=== PATIENT | female | born 1965 | race Caucasian/White ===

== ENCOUNTER 2020-06-01 02:55 | Inpatient (IN) | payer BC ==
[~2020-06-01] VITALS: Ht 160 cm; Wt 43.6 kg
[2020-06-01] VITALS (9 sets, daily range): BP systolic 108–132; BP diastolic 62–90
[2020-06-01 03:21] LABS: BASOPHILS # (AUTO) 0.1 X10'3 (0-0.2); EOSINOPHILS # (AUTO) 0.1 X10'3 (0-0.9); HEMOGLOBIN 7.7 g/dl (12.0-16.0); MEAN CORPUSCULAR HEMOGLOBIN 21.7 PG (27.0-31.0); WHITE BLOOD COUNT 6.5 X10'3 (4.5-11.0)
[2020-06-01 03:23] LABS: BASOPHILS % (AUTO) 0.9 % (0-1); EOSINOPHILS % (AUTO) 0.9 % (0-6); HEMATOCRIT 25.4 % (35.0-45.0); LYMPHOCYTES # (AUTO) 2.6 X10'3 (1.1-4.8); LYMPHOCYTES % (AUTO) 39.3 % (21-51); MEAN CORPUSCULAR HGB CONC 30.2 g/dL (33.0-36.5); MEAN CORPUSCULAR VOLUME 71.8 FL (78-98); MEAN PLATELET VOLUME 8.7 FL (7.4-10.4); MONOCYTES # (AUTO) 0.9 X10'3 (0-0.9); MONOCYTES % (AUTO) 13.7 % (2-12); NEUTROPHILS % (AUTO) 45.2 % (42-75); PLATELET COUNT 112 X10'3 (140-440); RED BLOOD COUNT 3.54 X10'6 (4.20-5.60); RED CELL DISTRIBUTION WIDTH 21.7 % (11.5-14.5)
[2020-06-01] MEDS ORDERED: iohexol 350MG/ML 100ml bottle IV ONE (03:35)
[2020-06-01 03:36] LABS: ANISOCYTOSIS 3+; MICROCYTOSIS 1+; PLATELET ESTIMATE DECREASED
[2020-06-01 03:37] LABS: ALANINE AMINOTRANSFERASE 27 U/L (12-78); ALBUMIN 2.5 G/DL (3.4-5.0); ALBUMIN/GLOBULIN RATIO 0.7 (1.1-1.5); ALKALINE PHOSPHATASE 78 IU/L (46-116); ANION GAP 6 (8-16); ASPARTATE AMINO TRANSFERASE 24 U/L (10-37); BILIRUBIN,TOTAL 0.3 MG/DL (0.1-1.0); BLOOD UREA NITROGEN 6 MG/DL (7-18); CALCIUM 8.2 MG/DL (8.5-10.1); CHLORIDE 113 MMOL/L (99-107); CREATININE 0.43 MG/DL (0.40-0.90); GLUCOSE 98 MG/DL (70-104); POTASSIUM 3.7 MMOL/L (3.5-5.1); SODIUM 145 MMOL/L (135-145); TOTAL CARBON DIOXIDE 25.6 MMOL/L (24-32); eGFR > 90 ML/MIN
[2020-06-01 03:40] LABS: HYPOCHROMASIA 2+; POIKILOCYTOSIS 1+
[2020-06-01 03:41] LABS: TEAR DROP CELLS FEW
[2020-06-01 03:45] LABS: MAGNESIUM 1.6 MG/DL (1.5-2.4)
[2020-06-01 03:46] LABS: TROPONIN I 0.81 NG/ML (0.0-0.05)
[2020-06-01] MEDS ORDERED: ondansetron/PF 4mg/2ml inj IV ONE (04:10)
[2020-06-01] MEDS ORDERED: CARI350T PO (04:13)
[2020-06-01] MEDS ORDERED: BUDE10.2 INH (04:13)
[2020-06-01] MEDS ORDERED: PENT100C9 PO (04:13)
[2020-06-01] MEDS ORDERED: TOPI25TA15 PO (04:13)
[2020-06-01] MEDS ORDERED: TAMO20TA4 PO (04:13)
[2020-06-01] MEDS ORDERED: DIAZ10TA4 PO (04:13)
[2020-06-01] MEDS ORDERED: LANS30CA56 PO (04:13)
[2020-06-01] MEDS ORDERED: MOME17SP BOTHNARES (04:13)
[2020-06-01] MEDS ORDERED: VENL75TA4 PO ×2 (04:13)
[2020-06-01] MEDS ORDERED: AZEL30SP3 BOTHNARES (04:13)
[2020-06-01] MEDS ORDERED: ALBU18HF2 INH (04:13)
[2020-06-01] MEDS ORDERED: MULT-1085 PO (04:13)
[2020-06-01] MEDS ORDERED: IMI20NS NS (04:13)
[2020-06-01] MEDS ORDERED: MEMA10TA PO (04:13)
[2020-06-01] MEDS ORDERED: TIOT18CA3 INH (04:13)
[2020-06-01] MEDS ORDERED: EREN70AU SQ (04:13)
[2020-06-01] MEDS ORDERED: RIBO100T3 PO (04:13)
[2020-06-01] MEDS ORDERED: ZOLM5TAB9 (04:14)
[2020-06-01 04:49] LABS: URINE AMPHETAMINE SCREEN NEGATIVE (Neg); URINE BARBITUATE SCREEN NEGATIVE (Neg); URINE BENZODIAZEPINES SCREEN POSITIVE (Neg); URINE CANNABINOID SCREEN NEGATIVE (Neg); URINE COCAINE SCREEN NEGATIVE (Neg); URINE METHADONE SCREEN NEGATIVE (Neg); URINE OPIATE SCREEN NEGATIVE (Neg); URINE PHENCYCLIDINE SCREEN NEGATIVE (Neg)
[2020-06-01] MEDS ORDERED: diltiazem-D5W 125mg/125ml 125 ML IV ONE (05:09)
[2020-06-01] MEDS ORDERED: diltiazem 5mg/ml 5ml inj. IV ONE (05:10)
[2020-06-01] MEDS ORDERED: diltiazem-NS 100mg/100ml 100 ML IV ONE (05:12)
[2020-06-01] MEDS ORDERED: metoprolol tartrate 1mg/ml inj IV ONE (05:25)
[2020-06-01] MEDS: normal saline 1000ml 1,000 ML IV SCH (05:49)
[2020-06-01] MEDS ORDERED: ondansetron/PF 4mg/2ml inj IV PRN (05:50)
[2020-06-01] MEDS ORDERED: mag hydrox/Alum hydrox/simeth 30ml oral suspension PO PRN (05:50)
[2020-06-01] MEDS ORDERED: potassium Cl 20 mEq SR tablet PO PRN (05:50)
[2020-06-01] MEDS ORDERED: morphine 2 MG/ML inj. syringe IV PRN ×2 (05:50)
[2020-06-01] MEDS ORDERED: potassium CL 10mEq/100ml bag 100 ML IV PRN ×2 (05:50)
[2020-06-01] MEDS ORDERED: magnesium hydroxide 30ml (MOM) UD suspension PO PRN (05:50)
[2020-06-01] MEDS ORDERED: SUMATRIPTAN 20 MG NS PRN (05:55)
[2020-06-01] MEDS ORDERED: diazepam 5mg tablet PO PRN (05:55)
[2020-06-01] MEDS ORDERED: albuterol 2.5 MG/3 ML nebule NEB PRN (05:55)
[2020-06-01] MEDS ORDERED: cyclobenzaprine 10mg tablet PO PRN (06:00)
[2020-06-01 06:52] LABS: HEMOGLOBIN A1C 5.6 % (4.5-6.2)
[2020-06-01] MEDS ORDERED: pentosan 100mg capsule PO SCH (07:00)
--- NOTE | 2020-06-01 07:00 | NUR ---
Received report from Stephen LEONG in ED. Had opportunity to ask questions concerning Pt's care. Awaiting Arrival of Pt to room 3019.
--- NOTE | 2020-06-01 07:30 | NUR ---
Pt arrived to room 3019. Pt alert and oriented. Vitals taken: BP 130/76, HR: 115, RR: 18, O2: 95 RA. Will continue to monitor Pt through out shift.
[2020-06-01] MEDS ORDERED: ipratropium 0.5 MG/2.5ML nebule IH SCH (08:00)
[2020-06-01] MEDS ORDERED: multivitamins, therapeutics tablet PO SCH (08:00)
[2020-06-01] MEDS ORDERED: non-formulary drug (Tiotropium Bromide (Spiriva) 1 CAP) INH SCH (08:00)
[2020-06-01] MEDS ORDERED: non-formulary drug (Budesonide/Formoterol Fumarate (Symbicort 160-4.5 Mcg Inhaler) 2 PUFFS INH SCH (08:00)
[2020-06-01] MEDS ORDERED: RIBOFLAVIN PO SCH (08:00)
[2020-06-01] MEDS ORDERED: metoprolol tartrate 50mg tablet PO SCH (08:00)
[2020-06-01] MEDS: K and/or MAG REPLACEMENT MC SCH ×2 (08:00→20:00)
[2020-06-01] MEDS ORDERED: albuterol 2.5 MG/3 ML nebule NEB SCH (09:00)
[2020-06-01] MEDS: pantoprazole 40mg Tablet.DR PO SCH (09:17)
[2020-06-01] MEDS: venlafaxine XR 75mg capsule (Q24H) PO SCH ×2 (09:17→21:18)
[2020-06-01] MEDS: memantine 5mg tablet PO SCH ×2 (09:18→21:17)
[2020-06-01] MEDS: heparin, porcine 5000 units/ml vial SQ SCH ×2 (09:19→21:20)
--- NOTE | 2020-06-01 09:37 | NUR ---
PAGER ID: [phone] MESSAGE: Re: Rashmi Richardson. Room: [facility]. Critical 6hr trop of 1.03. No chest pain. BP: 120/70, HR: 115. -[facility] #[id number] Dr. Reyes paged concerning critical trop.
--- NOTE | 2020-06-01 09:46 | NUR ---
PAGER ID: [phone] MESSAGE: Re: Rashmi Richardson. Room: [facility]. Critical 6hr trop 1.03. No chest pain. BP: 129/70, HR: 115. -[facility] #[id number] Dr. Duarte paged concerning critical 6 hr trop.
[2020-06-01] MEDS: budesonide 0.5mg/2ml UD nebule IH SCH ×2 (10:16→20:28)
[2020-06-01] MEDS: tamoxifen 10mg tablet PO SCH (10:51)
[2020-06-01] MEDS: azelastine Nasal Spray bottle NS SCH (10:52)
[2020-06-01] MEDS: fluticasone nasal spray 16GM bottle NS SCH (10:52)
[2020-06-01] MEDS: pentosan 100mg capsule PO SCH ×2 (12:00→17:00)
--- NOTE | 2020-06-01 15:00 | NUR ---
Patient in room PCU 3019. I have received report from Rashmi Alaniz RN and had the opportunity to ask questions and assume patient care.
[2020-06-01] MEDS: ipratropium/albuterol 3ml nebule NEB SCH ×2 (15:45→20:28)
--- NOTE | 2020-06-01 16:28 | NUR ---
PAGER ID: [phone] MESSAGE: Re: Rashmi Richardson. Room: [facility]. 12hr trop of 0.97. No chest pain. BP: 112/68, HR: 125, sinus tach. Do you want to continue Cardizem drip? -Jatin [facility] #[id number] Dr. Duarte paged concerning Pt's 12 hr trop and cardizem drip.
--- NOTE | 2020-06-01 16:45 | NUR ---
Noted that pt with a low BMI. Pt seen at bedside reports UBW 105-110 lbs. Current scaled weight is 96 lbs (91% reported UBW). Pt endorses a good appetite and states she was eating well [employer] and thought she actually gained weight. Pt on a heart healthy diet documented with 75% PO intake first meal. Pt with no documented decrease in muscle strength or edema. Pt with visible bilat temporal wasting and clavicles are present however pt reports this is normal for her. Pt currently lacks a minimum of two criteria for malnutrition. Pt provided with [employer] coupons with verbal education for ways to gain weight. Pt denies food allergies however reports being lactose intolerant and states she doesn't like cooked vegetables, d/w dietary. Pt denies difficulty chewing or swallowing. Pt reports LBM 9/10 with constipation/diarrhea x 5 years. Pt provided with verbal nutrition therapy education for both. RD contact information provided. Will continue to follow. Addendum: 06/01/20 at [address] Amended: Links added.
--- NOTE | 2020-06-01 17:41 | NUR ---
PAGER ID: [phone] MESSAGE: Re: Rashmi Richardson. Room: 3019. Do you want to continue Cardizem drip? HR 130, sinus tach, BP: 112/66. -Jatin [facility] #[id number] Dr. Duarte paged concerning Pt's cardizem drip.
--- NOTE | 2020-06-01 18:10 | NUR ---
Patient in room PCU 3019. I have received report from DANG JOVEL and had the opportunity to ask questions and assume patient care.
--- NOTE | 2020-06-01 18:18 | NUR ---
Problems reprioritized. Patient report given, questions answered & plan of care reviewed with Smita LEONG.
--- NOTE | 2020-06-01 18:45 | NUR ---
Patient in room PCU 3019. I have received report from DANG Ordoñez and had the opportunity to ask questions and assume patient care.
[2020-06-01 19:00] LABS: % IRON SATURATION 4 % (11-46); IRON 20 UG/DL (49-151); TOTAL IRON BINDING CAPACITY 470 UG/DL (259-388)
[2020-06-01] MEDS: levalbuterol 0.63mg/3ml nebule IH SCH (21:00)
[2020-06-01] MEDS: acetaminophen 325mg tablet PO PRN (21:17)
[2020-06-01] MEDS: metoprolol tartrate 25mg tablet PO SCH (21:18)
[2020-06-01] MEDS ORDERED: metoprolol tartrate 12.5mg (1/2 tablet) PO STA (23:48)
[2020-06-02] VITALS (10 sets, daily range): BP systolic 115–137; BP diastolic 71–83
[2020-06-02] MEDS: levalbuterol 0.63mg/3ml nebule IH SCH ×4 (02:31→20:43)
[2020-06-02] MEDS: ipratropium/albuterol 3ml nebule NEB SCH ×3 (02:32→14:40)
[2020-06-02 05:54] LABS: ALANINE AMINOTRANSFERASE 26 U/L (12-78); ALBUMIN 2.4 G/DL (3.4-5.0); ALBUMIN/GLOBULIN RATIO 0.8 (1.1-1.5); ALKALINE PHOSPHATASE 70 IU/L (46-116); ANION GAP 5 (8-16); ASPARTATE AMINO TRANSFERASE 22 U/L (10-37); BILIRUBIN,TOTAL 0.2 MG/DL (0.1-1.0); BLOOD UREA NITROGEN 7 MG/DL (7-18); BUN/CREATININE RATIO 17.1 (6.6-38.0); CALCIUM 8.5 MG/DL (8.5-10.1); CHLORIDE 113 MMOL/L (99-107); CHOL/HDL RATIO 4.3 (0.00-4.99); CHOLESTEROL 81 MG/DL (0-200); CREATININE 0.41 MG/DL (0.40-0.90); GLUCOSE 98 MG/DL (70-104); HDL CHOLESTEROL 19 MG/DL (35-60); LDL CHOLESTEROL 41 MG/DL (50-100); POTASSIUM 3.6 MMOL/L (3.5-5.1); SODIUM 146 MMOL/L (135-145); TOTAL PROTEIN 5.6 G/DL (6.4-8.2); TRIGLYCERIDES 92 MG/DL (20-135); eGFR > 90 ML/MIN
[2020-06-02 06:02] LABS: WHITE BLOOD COUNT 4.4 X10'3 (4.5-11.0)
--- NOTE | 2020-06-02 06:03 | NUR ---
Problems reprioritized. Patient report given, questions answered & plan of care reviewed with DANG Caraballo.
[2020-06-02 06:04] LABS: HEMATOCRIT 23.1 % (35.0-45.0); MEAN CORPUSCULAR HEMOGLOBIN 21.7 PG (27.0-31.0); MEAN CORPUSCULAR HGB CONC 30.2 g/dL (33.0-36.5); MEAN CORPUSCULAR VOLUME 71.8 FL (78-98); MEAN PLATELET VOLUME 9.5 FL (7.4-10.4); PLATELET COUNT 97 X10'3 (140-440); RED BLOOD COUNT 3.22 X10'6 (4.20-5.60)
--- NOTE | 2020-06-02 06:15 | NUR ---
Patient in room PCU 3019. I have received report from Charo LEONG and had the opportunity to ask questions and assume patient care.
--- NOTE | 2020-06-02 07:13 | NUR ---
Paged Dr. Duarte Re: Rashmi Richardson RM [id number]. PT has critical value H/H- 7.0/23.1. Thank you Rashmi LEONG [id number]
[2020-06-02] MEDS: azelastine Nasal Spray bottle NS SCH (07:33)
[2020-06-02] MEDS: fluticasone nasal spray 16GM bottle NS SCH (07:33)
[2020-06-02] MEDS: venlafaxine XR 75mg capsule (Q24H) PO SCH ×2 (07:34→20:48)
[2020-06-02] MEDS: metoprolol tartrate 25mg tablet PO SCH ×2 (07:34→20:51)
[2020-06-02] MEDS: pantoprazole 40mg Tablet.DR PO SCH (07:34)
[2020-06-02] MEDS: memantine 5mg tablet PO SCH ×2 (07:35→20:48)
[2020-06-02] MEDS: heparin, porcine 5000 units/ml vial SQ SCH ×2 (07:36→20:47)
[2020-06-02] MEDS: tamoxifen 10mg tablet PO SCH (07:36)
[2020-06-02 07:43] LABS: TOTAL CELLS COUNTED 100
[2020-06-02 07:44] LABS: ANISOCYTOSIS 3+; HYPOCHROMASIA 1+; MICROCYTOSIS 1+; PLATELET ESTIMATE DECREASED; TARGET CELLS FEW
[2020-06-02 07:45] LABS: LARGE PLATELETS FEW; POIKILOCYTOSIS FEW; POLYCHROMASIA FEW
[2020-06-02] MEDS ORDERED: ERENUMAB AOOE 70 MG SQ SCH (08:00)
[2020-06-02] MEDS: K and/or MAG REPLACEMENT MC SCH ×2 (08:00→20:00)
[2020-06-02] MEDS ORDERED: [UNRECOGNIZED DRUG - OTHER] SQ SCH (08:00)
[2020-06-02] MEDS: budesonide 0.5mg/2ml UD nebule IH SCH ×2 (08:02→20:43)
--- NOTE | 2020-06-02 09:26 | NUR ---
Patient's Johan was able to bring in home medication today of Pentosan. Medication was given to pharmacy. Patient also stated that her home medication Aimovig 1x monthly was already taken May 22, 2020. I have updated the home med rec and will discuss medication going forward with Dr. Duarte. Will continue to monitor.
--- NOTE | 2020-06-02 11:14 | NUR ---
Dr. Duarte at bedside with patient and Nurse. New order 1 unit of blood. Blood consent signed and in chart. DC Home medication that pt takes once a month. Continue troponin every 6hrs X3. If trops are normal MD would like Stress test done. Will continue to monitor.
--- NOTE | 2020-06-02 11:45 | NUR ---
Patients home medication 1 unit Elmiron has no bar code on package from pharmacy. Manually dispensed.
--- NOTE | 2020-06-02 15:34 | NUR ---
PAGER ID: [phone] MESSAGE: Rashmi díaz [phone]. RE [id number] Pt having a reaction to transfusion, hives itching, needs Benadryl or something/ Thanks! Addendum: 06/02/20 at 1536 by Rashmi Deutsch RN approved a one time dose of Benadryl 25mg IV Now
[2020-06-02] MEDS ORDERED: diphenhydrAMINE 50 mg/ml inj IV ONE (15:40)
--- NOTE | 2020-06-02 16:00 | NUR ---
Patients 1 Unit of LRPC was held due to pt stating itchiness and hives. MD was called and notified with a one time order of Benadryl 25mg now. Pt received via IV now. All blood tubing was taken down immediately and bagged in hazardous waste and brought to Lab and given to blood bank rep Ramírez. A Nurses report of transfusion reaction was filled out and an intervention was added into care of plan for patient as well. Patient VSS 129/86, HR 1520, O2 91%RA, RR18, oral temp 98.9. A urine sample was collected and sent as well to lab and lab draw is here pulling a pink and red tops for blood samples and testing. Patient is being monitored closely. Will continue to monitor.
--- NOTE | 2020-06-02 18:07 | NUR ---
Problems reprioritized. Patient report given, questions answered & plan of care reviewed with Charo LEONG.
--- NOTE | 2020-06-02 18:30 | NUR ---
Patient in room PCU 3019. I have received report from DANG Caraballo and had the opportunity to ask questions and assume patient care.
[2020-06-02] MEDS: acetaminophen 325mg tablet PO PRN (18:44)
--- NOTE | 2020-06-02 21:33 | NUR ---
Sent to [facility] PAGER ID: [phone] MESSAGE: room 3019 Rashmi Mckeon: DX: NSTEMI Pt. has chest pain, ekg changes. Can you look at them? Gave morphine for pain. Thanks, Charo [id number]
[2020-06-03] VITALS (10 sets, daily range): BP systolic 121–147; BP diastolic 81–92
[2020-06-03 01:29] LABS: ALANINE AMINOTRANSFERASE 25 U/L (12-78); ALBUMIN 2.4 G/DL (3.4-5.0); ALBUMIN/GLOBULIN RATIO 0.7 (1.1-1.5); ALKALINE PHOSPHATASE 79 IU/L (46-116); ANION GAP 6 (8-16); ASPARTATE AMINO TRANSFERASE 20 U/L (10-37); BILIRUBIN,TOTAL 0.3 MG/DL (0.1-1.0); BLOOD UREA NITROGEN 7 MG/DL (7-18); BUN/CREATININE RATIO 19.4 (6.6-38.0); CALCIUM 8.2 MG/DL (8.5-10.1); CHLORIDE 112 MMOL/L (99-107); CREATININE 0.36 MG/DL (0.40-0.90); GLUCOSE 95 MG/DL (70-104); POTASSIUM 3.3 MMOL/L (3.5-5.1); SODIUM 145 MMOL/L (135-145); TOTAL CARBON DIOXIDE 27.3 MMOL/L (24-32); TOTAL PROTEIN 5.7 G/DL (6.4-8.2); eGFR > 90 ML/MIN
[2020-06-03 01:32] LABS: TROPONIN I 0.51 NG/ML (0.0-0.05)
[2020-06-03 02:22] LABS: HEMATOCRIT 24.7 % (35.0-45.0); HEMOGLOBIN 7.6 g/dl (12.0-16.0); MEAN CORPUSCULAR HEMOGLOBIN 22.3 PG (27.0-31.0); MEAN CORPUSCULAR HGB CONC 30.8 g/dL (33.0-36.5); MEAN CORPUSCULAR VOLUME 72.5 FL (78-98); MEAN PLATELET VOLUME 9.7 FL (7.4-10.4); PLATELET COUNT 90 X10'3 (140-440); RED BLOOD COUNT 3.41 X10'6 (4.20-5.60); WHITE BLOOD COUNT 4.6 X10'3 (4.5-11.0)
[2020-06-03] MEDS: levalbuterol 0.63mg/3ml nebule IH SCH ×4 (03:14→20:18)
[2020-06-03 05:19] LABS: TOTAL CELLS COUNTED 100
[2020-06-03 05:20] LABS: ANISOCYTOSIS 3+; MICROCYTOSIS 1+; PLATELET ESTIMATE DECREASED
[2020-06-03 05:21] LABS: HYPOCHROMASIA 1+
[2020-06-03] MEDS: normal saline 1000ml 1,000 ML IV SCH (05:49)
--- NOTE | 2020-06-03 06:30 | NUR ---
Patient had a breathing treatment last night around 2100. After breathing treatment patient HR went up from 155 to 130 and she began having pain in her left arm that radiated to her chest located at her sternum. A 12 lead EKG was taken, reviewed by Dr. Caballero and was not noted to have any significant findings. Morphine was given to patient which relieved her chest pain. Patient was chest pain free throughout rest of night.
[2020-06-03] MEDS: budesonide 0.5mg/2ml UD nebule IH SCH ×2 (07:36→20:18)
[2020-06-03] MEDS: fluticasone nasal spray 16GM bottle NS SCH (07:47)
[2020-06-03] MEDS: azelastine Nasal Spray bottle NS SCH (07:47)
[2020-06-03] MEDS: memantine 5mg tablet PO SCH ×2 (07:48→19:59)
[2020-06-03] MEDS: venlafaxine XR 75mg capsule (Q24H) PO SCH ×2 (07:48→20:00)
[2020-06-03] MEDS: pantoprazole 40mg Tablet.DR PO SCH (07:48)
[2020-06-03] MEDS: metoprolol tartrate 25mg tablet PO SCH ×2 (07:49→20:00)
[2020-06-03] MEDS: tamoxifen 10mg tablet PO SCH (07:51)
[2020-06-03] MEDS: heparin, porcine 5000 units/ml vial SQ SCH ×2 (07:53→20:01)
[2020-06-03] MEDS: K and/or MAG REPLACEMENT MC SCH ×2 (08:00→20:00)
[2020-06-03] MEDS: acetaminophen 325mg tablet PO PRN (08:07)
[2020-06-03] MEDS: methylPREDNISolone sod succ 125mg/2ml vial IV SCH ×2 (08:17→20:02)
[2020-06-03 09:05] LABS: % IRON SATURATION 5 % (11-46); IRON 25 UG/DL (49-151); TOTAL IRON BINDING CAPACITY 465 UG/DL (259-388)
[2020-06-03] MEDS ORDERED: diphenhydrAMINE 25mg capsule PO ONE ×2 (11:40→12:10)
[2020-06-03] MEDS ORDERED: diphenhydrAMINE 50 mg/ml inj IV ONE (11:40)
--- NOTE | 2020-06-03 11:43 | NUR ---
ordered 2 units of RPPC. Was made aware of transfusion reaction yesterday. She would also like the patient to be medicated prior to transfusion with 25mg of benadryl and 650mg of Tylenol. 25mg of IV benadryl to be given if reaction occurs.
[2020-06-03] MEDS ORDERED: diphenhydrAMINE 50 mg/ml inj IV PRN (12:10)
--- NOTE | 2020-06-03 14:56 | NUR ---
notified. PAGER ID: [phone] MESSAGE: Re: Rashmi Richardson. 3019. Pt. tolerating blood transfusion. Would you like a 2nd unit after this unit is done? thank you. Gabrielle Johnson [phone].
[2020-06-03 16:31] LABS: HEMATOCRIT 30.7 % (35.0-45.0); HEMOGLOBIN 9.5 g/dl (12.0-16.0); MEAN CORPUSCULAR HEMOGLOBIN 23.7 PG (27.0-31.0); MEAN CORPUSCULAR VOLUME 76.3 FL (78-98); MEAN PLATELET VOLUME 8.9 FL (7.4-10.4); PLATELET COUNT 93 X10'3 (140-440); RED BLOOD COUNT 4.02 X10'6 (4.20-5.60); RED CELL DISTRIBUTION WIDTH 23.3 % (11.5-14.5); WHITE BLOOD COUNT 3.1 X10'3 (4.5-11.0)
--- NOTE | 2020-06-03 16:41 | NUR ---
notified. PAGER ID: [phone] MESSAGE: Re: Dylan Rashmi. 3019. HGB after one unit 9.5. Blood bank recommending not to infuse 2nd Unit. On-call pathologist willing to speak to you if theres issues. Thank you. Gabrielle Wray [phone]
--- NOTE | 2020-06-03 18:15 | NUR ---
Patient in room PCU 3019. I have received report from Gabrielle LEONG and had the opportunity to ask questions and assume patient care.
--- NOTE | 2020-06-03 18:25 | NUR ---
Problems reprioritized. Patient report given, questions answered & plan of care reviewed with DANG Yu.
[2020-06-04] MEDS: acetaminophen 325mg tablet PO PRN ×2 (00:18→16:18)
[2020-06-04] MEDS: potassium Cl 20 mEq SR tablet PO PRN ×2 (00:18→04:51)
[2020-06-04 02:00] VITALS: BP 126/82
[2020-06-04] MEDS: levalbuterol 0.63mg/3ml nebule IH SCH ×4 (03:00→20:12)
[2020-06-04 06:11] LABS: ALANINE AMINOTRANSFERASE 31 U/L (12-78); ALBUMIN 2.6 G/DL (3.4-5.0); ALBUMIN/GLOBULIN RATIO 0.7 (1.1-1.5); ALKALINE PHOSPHATASE 74 IU/L (46-116); ANION GAP 6 (8-16); ASPARTATE AMINO TRANSFERASE 20 U/L (10-37); BILIRUBIN,TOTAL 0.3 MG/DL (0.1-1.0); BLOOD UREA NITROGEN 5 MG/DL (7-18); BUN/CREATININE RATIO 12.8 (6.6-38.0); CALCIUM 8.7 MG/DL (8.5-10.1); CHLORIDE 112 MMOL/L (99-107); CREATININE 0.39 MG/DL (0.40-0.90); GLUCOSE 97 MG/DL (70-104); POTASSIUM 3.6 MMOL/L (3.5-5.1); SODIUM 145 MMOL/L (135-145); TOTAL CARBON DIOXIDE 27.1 MMOL/L (24-32); TOTAL PROTEIN 6.1 G/DL (6.4-8.2); eGFR > 90 ML/MIN
--- NOTE | 2020-06-04 06:22 | NUR ---
Patient in room PCU 3019. I have received report from Aimee LEONG and had the opportunity to ask questions and assume patient care.
--- NOTE | 2020-06-04 06:24 | NUR ---
Problems reprioritized. Patient report given, questions answered & plan of care reviewed with Gabrielle LEONG.
[2020-06-04 06:30] VITALS: BP 154/94
[2020-06-04] MEDS: heparin, porcine 5000 units/ml vial SQ SCH (08:00)
[2020-06-04] MEDS: K and/or MAG REPLACEMENT MC SCH ×2 (08:00→20:00)
[2020-06-04] MEDS: azelastine Nasal Spray bottle NS SCH (08:04)
[2020-06-04] MEDS: pantoprazole 40mg Tablet.DR PO SCH (08:06)
[2020-06-04] MEDS: venlafaxine XR 75mg capsule (Q24H) PO SCH ×2 (08:06→20:19)
[2020-06-04] MEDS: metoprolol tartrate 25mg tablet PO SCH ×2 (08:06→20:19)
[2020-06-04] MEDS: tamoxifen 10mg tablet PO SCH (08:06)
[2020-06-04] MEDS: memantine 5mg tablet PO SCH ×2 (08:06→20:20)
[2020-06-04] MEDS: methylPREDNISolone sod succ 125mg/2ml vial IV SCH ×2 (08:06→20:22)
[2020-06-04] MEDS: fluticasone nasal spray 16GM bottle NS SCH (08:07)
[2020-06-04 08:34] LABS: HEMATOCRIT 29.1 % (35.0-45.0); MEAN CORPUSCULAR HEMOGLOBIN 23.5 PG (27.0-31.0); MEAN CORPUSCULAR HGB CONC 30.9 g/dL (33.0-36.5); MEAN CORPUSCULAR VOLUME 76.2 FL (78-98); MEAN PLATELET VOLUME 9.3 FL (7.4-10.4); PLATELET COUNT 88 X10'3 (140-440); RED BLOOD COUNT 3.82 X10'6 (4.20-5.60); RED CELL DISTRIBUTION WIDTH 23.6 % (11.5-14.5); WHITE BLOOD COUNT 4.9 X10'3 (4.5-11.0)
[2020-06-04] MEDS: budesonide 0.5mg/2ml UD nebule IH SCH ×2 (09:04→20:12)
[2020-06-04 09:58] LABS: TOTAL CELLS COUNTED 100
[2020-06-04 09:59] LABS: ANISOCYTOSIS 3+; HYPOCHROMASIA 1+; MICROCYTOSIS 1+; PLATELET ESTIMATE DECREASED
[2020-06-04 11:00] VITALS: BP 94/76
[2020-06-04 15:00] VITALS: BP 122/79
--- NOTE | 2020-06-04 17:57 | NUR ---
Spoke to Dr Myers and he said to D/C heparin since patient is a "tiny little woman who walks around just fine."
[2020-06-04 18:00] VITALS: BP 130/84
--- NOTE | 2020-06-04 18:18 | NUR ---
Problems reprioritized. Patient report given, questions answered & plan of care reviewed with Aimee LEONG.
--- NOTE | 2020-06-04 18:23 | NUR ---
Patient in room PCU 3019. I have received report from Gabrielle LEONG and had the opportunity to ask questions and assume patient care.
[2020-06-04 22:00] VITALS: BP 137/84
[2020-06-05 02:00] VITALS: BP 130/77
[2020-06-05 02:13] LABS: OCCULT BLOOD STOOL NEGATIVE (Neg)
[2020-06-05] MEDS: levalbuterol 0.63mg/3ml nebule IH SCH ×2 (02:44→09:04)
[2020-06-05] MEDS: normal saline 1000ml 1,000 ML IV SCH (05:49)
[2020-06-05 06:25] LABS: HEMATOCRIT 28.3 % (35.0-45.0); HEMOGLOBIN 8.7 g/dl (12.0-16.0); MEAN CORPUSCULAR HEMOGLOBIN 23.6 PG (27.0-31.0); WHITE BLOOD COUNT 5.3 X10'3 (4.5-11.0)
[2020-06-05 06:26] LABS: MEAN CORPUSCULAR HGB CONC 30.9 g/dL (33.0-36.5); MEAN CORPUSCULAR VOLUME 76.3 FL (78-98); MEAN PLATELET VOLUME 9.7 FL (7.4-10.4); PLATELET COUNT 86 X10'3 (140-440); RED BLOOD COUNT 3.71 X10'6 (4.20-5.60); RED CELL DISTRIBUTION WIDTH 24.1 % (11.5-14.5)
--- NOTE | 2020-06-05 06:26 | NUR ---
Problems reprioritized. Patient report given, questions answered & plan of care reviewed with Gabrielle LEONG.
[2020-06-05 06:30] VITALS: BP 130/81
[2020-06-05 06:46] LABS: ALANINE AMINOTRANSFERASE 30 U/L (12-78); ALBUMIN 2.5 G/DL (3.4-5.0); ALBUMIN/GLOBULIN RATIO 0.7 (1.1-1.5); ALKALINE PHOSPHATASE 68 IU/L (46-116); ANION GAP 5 (8-16); ASPARTATE AMINO TRANSFERASE 16 U/L (10-37); BILIRUBIN,TOTAL 0.3 MG/DL (0.1-1.0); BLOOD UREA NITROGEN 7 MG/DL (7-18); CALCIUM 8.3 MG/DL (8.5-10.1); CHLORIDE 113 MMOL/L (99-107); CREATININE 0.35 MG/DL (0.40-0.90); GLUCOSE 90 MG/DL (70-104); POTASSIUM 3.4 MMOL/L (3.5-5.1); SODIUM 145 MMOL/L (135-145); TOTAL CARBON DIOXIDE 27.1 MMOL/L (24-32); TOTAL PROTEIN 5.9 G/DL (6.4-8.2); eGFR > 90 ML/MIN
[2020-06-05] MEDS ORDERED: potassium CL 10mEq/100ml bag 100 ML IV PRN (07:05)
[2020-06-05] MEDS ORDERED: magnesium 4gm in 100ml NS 100 ML IV PRN (07:05)
[2020-06-05] MEDS ORDERED: magnesium Cl slow-release 64mg tablet PO PRN (07:05)
[2020-06-05] MEDS ORDERED: potassium Cl 20 mEq SR tablet PO PRN ×2 (07:05)
[2020-06-05] MEDS: methylPREDNISolone sod succ 125mg/2ml vial IV SCH (07:28)
[2020-06-05] MEDS: azelastine Nasal Spray bottle NS SCH (07:28)
[2020-06-05] MEDS: fluticasone nasal spray 16GM bottle NS SCH (07:28)
[2020-06-05] MEDS: tamoxifen 10mg tablet PO SCH (07:30)
[2020-06-05] MEDS: pantoprazole 40mg Tablet.DR PO SCH (07:30)
[2020-06-05] MEDS: metoprolol tartrate 25mg tablet PO SCH (07:30)
[2020-06-05] MEDS: memantine 5mg tablet PO SCH (07:30)
[2020-06-05] MEDS: venlafaxine XR 75mg capsule (Q24H) PO SCH (07:30)
[2020-06-05] MEDS ORDERED: K and/or MAG REPLACEMENT MC SCH (08:00)
[2020-06-05] MEDS: budesonide 0.5mg/2ml UD nebule IH SCH (09:04)
[2020-06-05 10:04] LABS: ANISOCYTOSIS 3+; LARGE PLATELETS MODERATE; MICROCYTOSIS 1+; PLATELET ESTIMATE DECREASED; TOTAL CELLS COUNTED 100
[2020-06-05 10:05] LABS: HYPOCHROMASIA 2+
[2020-06-05] MEDS ORDERED: LEVA0.6333 IH (10:53)
[2020-06-05] MEDS ORDERED: METO25TA6 PO (10:54)
[2020-06-05] MEDS: acetaminophen 325mg tablet PO PRN (10:59)
[2020-06-05 11:00] VITALS: BP 141/83
--- NOTE | 2020-06-05 13:40 | NUR ---
Per MD, patient stable for discharge home. Discharge packet completed and given to patient, all questions answered. Home medication returned to patient. New prescriptions faxed. IV removed with catheter intact and tele monitor removed. Patient escorted from hospital via wheelchair, accompanied by myself, community education coordinator, and student nurse. Patient and family live in and family picked up pt in RV.
== END 2020-06-05 13:40 | disposition home or self-care (01) | DRG 281 ==
LOC: ER 02:55 → ED HOLD 05:49 → PCU 3S 07:23
PROVIDERS: ADMIT Internal Medicine; ATTEND Internal Medicine
PROC: B32T1ZZ Computerized Tomography (CT Scan) of Left Pulmonary Artery using Low Osmolar Contrast (ICD-10-PCS; 2020-06-01)
PROC: B3201ZZ Computerized Tomography (CT Scan) of Thoracic Aorta using Low Osmolar Contrast (ICD-10-PCS; 2020-06-01)
PROC: B32S1ZZ Computerized Tomography (CT Scan) of Right Pulmonary Artery using Low Osmolar Contrast (ICD-10-PCS; 2020-06-01)
PROC: 30233N1 Transfusion of Nonautologous Red Blood Cells into Peripheral Vein, Percutaneous Approach (ICD-10-PCS; principal; 2020-06-02)
DX: I21.4 Non-ST elevation (NSTEMI) myocardial infarction (principal); J44.1 Chronic obstructive pulmonary disease with (acute) exacerbation; T80.61XA Other serum reaction due to administration of blood and blood products, initial encounter; F32.9 Major depressive disorder, single episode, unspecified; I10 Essential (primary) hypertension; D50.0 Iron deficiency anemia secondary to blood loss (chronic); I25.118 Atherosclerotic heart disease of native coronary artery with other forms of angina pectoris; M47.9 Spondylosis, unspecified; M79.602 Pain in left arm; G43.909 Migraine, unspecified, not intractable, without status migrainosus; F03.90 Unspecified dementia, unspecified severity, without behavioral disturbance, psychotic disturbance, mood disturbance, and anxiety; M25.512 Pain in left shoulder; R00.0 Tachycardia, unspecified; Z66 Do not resuscitate; Z82.49 Family history of ischemic heart disease and other diseases of the circulatory system; Z85.3 Personal history of malignant neoplasm of breast; Z87.11 Personal history of peptic ulcer disease; Z88.8 Allergy status to other drugs, medicaments and biological substances; Z79.899 Other long term (current) drug therapy; Y92.230 Patient room in hospital as the place of occurrence of the external cause; Y84.8 Other medical procedures as the cause of abnormal reaction of the patient, or of later complication, without mention of misadventure at the time of the procedure
CPT/HCPCS: 36415; 36430; 71275; 80053; 80061; 80305; 82272; 83036; 83540; 83550; 83735; 83880; 84484; 85007; 85008; 85025; 85027; 86078; 86885; 86900; 86901; 86920; 87081; 93005; 93306; 94640; 94760; G0378; J1200; J1644; J2270; J2405; J2930; J3490; J7030; J7614; J7626; P9016; Q0163; Q9967

== ENCOUNTER 2020-06-15 09:08 | Inpatient (IN) | payer BC ==
[~2020-06-15] VITALS: Ht 160 cm; Wt 45.3 kg
[~2020-06-15 09:08] MED LIST: AZEL30SP3 BOTHNARES; BUDE10.2 INH; CARI350T PO; DIAZ10TA4 PO; EREN70AU SQ; IMI20NS NS; LANS30CA56 PO; LEVA0.6333 IH; MEMA10TA PO; METO25TA6 PO; MOME17SP BOTHNARES; MULT-1085 PO; PENT100C9 PO; RIBO100T3 PO; TAMO20TA4 PO; TIOT18CA3 INH; TOPI25TA15 PO; VENL75TA4 PO; ZOLM5TAB9
[2020-06-15] MEDS ORDERED: heparin 10,000 units/1 ML INJ IV ONE ×2 (09:10→09:20)
--- NOTE | 2020-06-15 09:18 | NUR ---
Patient came in with heparin drip,spoke with Dr. Dockery,ordered to use the lowest weight(50kg)per protocol for heparin drip.
[2020-06-15] MEDS: heparin 25,000 UNIT/250ml bag 250 ML IV SCH ×2 (09:25→16:24)
[2020-06-15] MEDS ORDERED: iohexol 350MG/ML 100ml bottle IV ONE (09:31)
[2020-06-15 09:41] LABS: HEMATOCRIT 29.3 % (35.0-45.0); MEAN CORPUSCULAR HEMOGLOBIN 23.2 PG (27.0-31.0); MEAN CORPUSCULAR HGB CONC 30.9 g/dL (33.0-36.5); MEAN CORPUSCULAR VOLUME 75.1 FL (78-98); MEAN PLATELET VOLUME 8.9 FL (7.4-10.4); PLATELET COUNT 94 X10'3 (140-440); RED CELL DISTRIBUTION WIDTH 24.8 % (11.5-14.5); WHITE BLOOD COUNT 4.1 X10'3 (4.5-11.0)
[2020-06-15 09:52] LABS: PARTIAL THROMBOPLASTIN TIME 45 SECONDS (22-32)
[2020-06-15] MEDS ORDERED: morphine 2 MG/ML inj. syringe IV PRN ×2 (11:00)
[2020-06-15] MEDS ORDERED: metoprolol tartrate 1mg/ml inj IV PRN (11:00)
[2020-06-15] MEDS ORDERED: mag hydrox/Alum hydrox/simeth 30ml oral suspension PO PRN (11:00)
[2020-06-15] MEDS ORDERED: acetaminophen 325mg tablet PO PRN ×2 (11:00)
[2020-06-15] MEDS ORDERED: bisacodyl 10mg suppository rectal RC PRN (11:00)
[2020-06-15] MEDS ORDERED: magnesium 2GM in 50ml NS 50 ML IV PRN (11:00)
[2020-06-15] MEDS ORDERED: HYDROcodone/acetaminophen 5mg/325mg tablet PO PRN (11:00)
[2020-06-15] MEDS ORDERED: magnesium Cl slow-release 64mg tablet PO PRN (11:00)
[2020-06-15] MEDS ORDERED: magnesium hydroxide 30ml (MOM) UD suspension PO PRN (11:00)
[2020-06-15] MEDS ORDERED: regadenoson 0.4mg/5ml syringe IV PRN (11:00)
[2020-06-15] MEDS ORDERED: HYDROcodone/acetaminophen 10/325mg tab PO PRN (11:00)
[2020-06-15] MEDS ORDERED: potassium Cl 20 mEq SR tablet PO PRN (11:00)
[2020-06-15] MEDS ORDERED: magnesium 4gm in 100ml NS 100 ML IV PRN (11:00)
[2020-06-15] MEDS ORDERED: nitroGLYCERIN 0.4mg SUBLingual tab SL PRN ×2 (11:00)
[2020-06-15] MEDS ORDERED: potassium CL 10mEq/100ml bag 100 ML IV PRN ×2 (11:00)
[2020-06-15] MEDS ORDERED: aminophylline 250mg/10ml inj. IV PRN (11:00)
[2020-06-15] MEDS ORDERED: ondansetron/PF 4mg/2ml inj IV PRN (11:00)
[2020-06-15] MEDS: normal saline 1000ml 1,000 ML IV SCH ×2 (11:23→23:27)
[2020-06-15 11:38] LABS: ANISOCYTOSIS 3+; MICROCYTOSIS 1+; PLATELET ESTIMATE DECREASED; TOTAL CELLS COUNTED 100
[2020-06-15 11:39] LABS: GIANT PLATELET FEW; HYPOCHROMASIA 3+; LARGE PLATELETS MANY
--- NOTE | 2020-06-15 11:55 | NUR ---
received report from Sonya RN, ED. Had oppurtunity to ask questions concerning Pt care and plan of care. Awaiting Pt arrival to 302.
--- NOTE | 2020-06-15 12:26 | NUR ---
Pt arrived to room 3027B. Pt alert and oriented. Vitals stable. Will continue to monitor Pt.
[2020-06-15 12:45] VITALS: BP 127/86
[2020-06-15] MEDS ORDERED: ALBU8.5H8 INH (12:48)
[2020-06-15] MEDS ORDERED: GABA-530 PO (12:48)
[2020-06-15] MEDS ORDERED: DOXY-1 PO (12:49)
[2020-06-15] MEDS ORDERED: diazepam 5mg tablet PO PRN (13:30)
[2020-06-15] MEDS ORDERED: cyclobenzaprine 10mg tablet PO PRN (13:30)
[2020-06-15] MEDS ORDERED: SUMATRIPTAN 20 MG IH PRN (13:30)
[2020-06-15 13:57] LABS: HEMOGLOBIN A1C 5.4 % (4.5-6.2)
[2020-06-15 14:04] LABS: PHOSPHORUS 4.2 MG/DL (2.3-4.5)
[2020-06-15] MEDS ORDERED: ipratropium 0.5 MG/2.5ML nebule IH PRN (14:05)
[2020-06-15] MEDS ORDERED: albuterol 2.5 MG/3 ML nebule NEB PRN (14:05)
--- NOTE | 2020-06-15 14:18 | NUR ---
PAGER ID: [phone] MESSAGE: Re: Rashmi Richardson. Room: [facility]. Nuc-Med will do stress test in the morning due to Pt's elevated troponins. -Jatin [facility] #[id number] Dr. Kearns paged concerning Nuc-Med stress test
[2020-06-15 15:42] LABS: ALBUMIN 2.6 G/DL (3.4-5.0); ANION GAP 9 (8-16); BLOOD UREA NITROGEN 7 MG/DL (7-18); BUN/CREATININE RATIO 14.6 (6.6-38.0); CALCIUM 8.3 MG/DL (8.5-10.1); CHLORIDE 112 MMOL/L (99-107); CREATININE 0.48 MG/DL (0.40-0.90); GLUCOSE 74 MG/DL (70-104); POTASSIUM 3.2 MMOL/L (3.5-5.1); SODIUM 145 MMOL/L (135-145); TOTAL CARBON DIOXIDE 24.1 MMOL/L (24-32); eGFR > 90 ML/MIN
[2020-06-15] MEDS: pantoprazole 40mg Tablet.DR PO SCH (16:16)
[2020-06-15] MEDS: potassium Cl 20 mEq SR tablet PO PRN ×3 (16:17→23:59)
[2020-06-15] MEDS: heparin 10,000 units/1 ML INJ IV PRN ×2 (16:23→22:51)
[2020-06-15] MEDS ORDERED: pentosan 100mg capsule PO SCH (17:00)
[2020-06-15 18:00] VITALS: BP 136/87
--- NOTE | 2020-06-15 18:40 | NUR ---
Problems reprioritized. Patient report given, questions answered & plan of care reviewed with Citlali LEONG.
--- NOTE | 2020-06-15 18:44 | NUR ---
Patient in room PCU 3027. I have received report from DANG Steiner and had the opportunity to ask questions and assume patient care.
[2020-06-15] MEDS: K and/or MAG REPLACEMENT MC SCH (19:11)
[2020-06-15] MEDS ORDERED: metoprolol tartrate 25mg tablet PO SCH (20:00)
[2020-06-15] MEDS ORDERED: budesonide 0.5mg/2ml UD nebule IH SCH (20:00)
[2020-06-15] MEDS ORDERED: enoxaparin 40mg/0.4ml syringe SQ SCH (20:00)
[2020-06-15] MEDS: metoprolol tartrate 25mg tablet PO SCH (20:23)
[2020-06-15] MEDS: topiramate 25mg tablet PO SCH (20:24)
[2020-06-15] MEDS: memantine 5mg tablet PO SCH (20:24)
[2020-06-15] MEDS ORDERED: temazepam 15mg capsule PO PRN (21:00)
[2020-06-15] MEDS ORDERED: venlafaxine 37.5mg tablet PO SCH (21:00)
[2020-06-15] MEDS ORDERED: gabapentin 100mg capsule PO SCH (21:00)
[2020-06-16] VITALS (15 sets, daily range): BP systolic 128–148; BP diastolic 76–93
[2020-06-16] MEDS: heparin 10,000 units/1 ML INJ IV PRN (05:54)
[2020-06-16 05:58] LABS: HEMOGLOBIN 8.7 g/dl (12.0-16.0); WHITE BLOOD COUNT 4.2 X10'3 (4.5-11.0)
[2020-06-16 06:01] LABS: MEAN CORPUSCULAR HEMOGLOBIN 23.5 PG (27.0-31.0); MEAN CORPUSCULAR VOLUME 75.7 FL (78-98); MEAN PLATELET VOLUME 9.2 FL (7.4-10.4); PLATELET COUNT 87 X10'3 (140-440); RED CELL DISTRIBUTION WIDTH 24.7 % (11.5-14.5)
--- NOTE | 2020-06-16 06:04 | NUR ---
Patient in room PCU 3027. I have received report from Citlali LEONG and had the opportunity to ask questions and assume patient care.
[2020-06-16 06:19] LABS: ALBUMIN 2.3 G/DL (3.4-5.0); ANION GAP 11 (8-16); BLOOD UREA NITROGEN 7 MG/DL (7-18); BUN/CREATININE RATIO 17.5 (6.6-38.0); CALCIUM 8.4 MG/DL (8.5-10.1); CHLORIDE 113 MMOL/L (99-107); GLUCOSE 82 MG/DL (70-104); MAGNESIUM 1.6 MG/DL (1.5-2.4); SODIUM 146 MMOL/L (135-145); TOTAL CARBON DIOXIDE 22.3 MMOL/L (24-32); eGFR > 90 ML/MIN
[2020-06-16 06:20] LABS: POTASSIUM 4.2 MMOL/L (3.5-5.1)
[2020-06-16] MEDS: heparin 25,000 UNIT/250ml bag 250 ML IV SCH (06:36)
--- NOTE | 2020-06-16 06:43 | NUR ---
Problems reprioritized. Patient report given, questions answered & plan of care reviewed with DANG Haro.
[2020-06-16 07:16] LABS: ANISOCYTOSIS 3+; HYPOCHROMASIA 2+; MICROCYTOSIS 1+; PLATELET ESTIMATE DECREASED; TOTAL CELLS COUNTED 100
[2020-06-16 07:24] LABS: ELLIPTOCYTES FEW
[2020-06-16] MEDS ORDERED: pentosan 100mg capsule PO SCH (07:51)
[2020-06-16] MEDS ORDERED: tamoxifen 10mg tablet PO SCH (08:00)
[2020-06-16] MEDS ORDERED: venlafaxine 37.5mg tablet PO SCH (08:00)
[2020-06-16] MEDS ORDERED: fluticasone nasal spray 16GM bottle NS SCH (08:00)
[2020-06-16] MEDS ORDERED: multivitamins, therapeutics tablet PO SCH (08:00)
[2020-06-16] MEDS ORDERED: RIBOFLAVIN PO SCH (08:00)
[2020-06-16] MEDS: topiramate 25mg tablet PO SCH (08:01)
[2020-06-16] MEDS: memantine 5mg tablet PO SCH (08:01)
[2020-06-16] MEDS: metoprolol tartrate 25mg tablet PO SCH (08:03)
[2020-06-16] MEDS: pantoprazole 40mg Tablet.DR PO SCH (08:03)
[2020-06-16] MEDS: K and/or MAG REPLACEMENT MC SCH (08:21)
[2020-06-16] MEDS ORDERED: aspirin 325mg tablet PO SCH (08:30)
[2020-06-16] MEDS ORDERED: METO25TA6 PO (12:53)
[2020-06-16] MEDS ORDERED: FERR-29 PO (12:58)
--- NOTE | 2020-06-16 14:40 | NUR ---
Discharged with belongings, and discharge instructions. Stable and has good understanding of follow-up care. is driving.
== END 2020-06-16 14:40 | disposition home or self-care (01) | DRG 281 ==
LOC: ER 09:09 → ED HOLD 10:59 → EDBEDREQ 11:15 → PCU 3S 12:12
PROVIDERS: ADMIT Family Medicine; ATTEND Family Medicine
PROC: 4A02XM4 Measurement of Cardiac Total Activity, External Approach (ICD-10-PCS; principal; 2020-06-15)
PROC: 3E033HZ Introduction of Radioactive Substance into Peripheral Vein, Percutaneous Approach (ICD-10-PCS; 2020-06-15)
DX: I21.A1 Myocardial infarction type 2 (principal); E87.1 Hypo-osmolality and hyponatremia; E05.90 Thyrotoxicosis, unspecified without thyrotoxic crisis or storm; R00.0 Tachycardia, unspecified; F17.210 Nicotine dependence, cigarettes, uncomplicated; J44.9 Chronic obstructive pulmonary disease, unspecified; I10 Essential (primary) hypertension; K44.9 Diaphragmatic hernia without obstruction or gangrene; K21.9 Gastro-esophageal reflux disease without esophagitis; K25.9 Gastric ulcer, unspecified as acute or chronic, without hemorrhage or perforation; N30.10 Interstitial cystitis (chronic) without hematuria; F41.1 Generalized anxiety disorder; F41.8 Other specified anxiety disorders; Z85.3 Personal history of malignant neoplasm of breast; E87.6 Hypokalemia; D50.9 Iron deficiency anemia, unspecified; Z92.3 Personal history of irradiation; Z87.11 Personal history of peptic ulcer disease
CPT/HCPCS: 36415; 71275; 78452; 80048; 83036; 83735; 83880; 84100; 84443; 84484; 85007; 85025; 85610; 85730; 87081; 93005; 93017; 94640; 94760; 99285; A9500; G0378; J0280; J1644; J2785; J7030; J7626; Q9967